=== PATIENT | female | born 1985 | race American Indian/Alaskan Native ===

== ENCOUNTER 2016-10-20 08:56 | Day surgery (SDC) | payer MEDICAID ==
[~2016-10-20 08:56] MED LIST: Lidocaine 2% 5 ML SDV ONE; Midazolam 1 MG/ML 2 ML SDV ONE; Propofol 200 MG/20 ML SDV ONE; fentaNYL 100 MCG/2 ML SDV ONE
[2016-10-20] MEDS ORDERED: Sodium Chloride 0.9% 2.5 ML Syringe FLUSH PRN (09:14)
[2016-10-20] MEDS ORDERED: fentaNYL 100 MCG/2 ML SDV IVPUSH PRN (09:14)
[2016-10-20] MEDS ORDERED: Sodium Chloride 0.9% 10 ML Syringe FLUSH PRN (09:14)
[2016-10-20] MEDS ORDERED: Lactated Ringers 1,000 ML IV SCH (09:15)
--- NOTE | 2016-10-20 09:32 | PCM.PREANE ---
Preanesthetic Assessment - Anesthesia/Transfusion/Family Hx Anesthesia History: Prior Anesthesia Without Reaction Family History of Anesthesia Reaction: No Transfusion History: No Prior Transfusion(s) Intubation History: Unknown - Review of Systems General: No Symptoms Pulmonary: No Symptoms Cardiovascular: No Symptoms Gastrointestinal: No symptoms Neurological: No Symptoms Other: Reports: None - Physical Assessment O2 Sat by Pulse Oximetry: 99 Respiratory Rate: 16 Vital Signs: Last Vital Signs Temp 36.3 C 10/20/16 09:11 Pulse 80 10/20/16 09:11 Resp 16 10/20/16 09:11 BP 134/67 10/20/16 09:11 Pulse Ox 99 10/20/16 09:11 Height: 1.64 m Weight: 92.986 kg ASA Class: 2 Mental Status: Alert & Oriented x3 Airway Class: Mallampati = 2 Dentition: Reports: Normal Dentition (bonded front upper incisors) Thyro-Mental Finger Breadths: 3 Mouth Opening Finger Breadths: 3 ROM/Head Extension: Full Lungs: Clear to auscultation, Normal respiratory effort Cardiovascular: Regular Rate, Regular Rhythm - Allergies Allergies/Adverse Reactions: Allergies Allergy/AdvReac Type Severity Reaction Status Date / Time hydrocodone Allergy Nausea and Verified 10/16/16 10:22 Vomiting - Blood Blood Available: No - Anesthesia Plan Pre-Op Medication Ordered: None - Acknowledgements Anesthesia Type Planned: MAC Pt an Appropriate Candidate for the Planned Anesthesia: Yes Alternatives and Risks of Anesthesia Discussed w Pt/Guardian: Yes Pt/Guardian Understands and Agrees with Anesthesia Plan: Yes PreAnesthesia Questionnaire - Past Health History Medical/Surgical History: Denies Medical/Surgical History 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: Endocrine/Metabolic History: Reports: Obesity/BMI 30+ Dermatologic History: Reports: Psoriasis - Past Surgical History Head Surgeries/Procedures: Reports: None Female Surgical History: Reports: Cervical Conization, D&C - SUBSTANCE USE Smoking Status *Q: Current Every Day Smoker (< 1/2 ppd) Tobacco Use Within Last Twelve Months: Cigarettes Days Per Week of Alcohol Use: 0 Recreational Drug Use History: No - HOME MEDS Home Medications: Home Meds Desogestrel-Ethinyl Estradiol [Reclipsen 28 Day Tablet] 1 tab PO ASDIRECTED 06/03 [History] - CURRENT (IN HOUSE) MEDS Current Meds: Current Medications Fentanyl (Sublimaze) 50 mcg IVPUSH Q5M PRN PRN Reason: Pain (severe 7-10) Stop: 10/21/16 09:14 Lactated Ringer's (Ringers, Lactated) 1,000 mls @ 125 mls/hr IV ASDIRECTED FRANCISCO Sodium Chloride (Saline Flush) 10 ml FLUSH ASDIRECTED PRN PRN Reason: Keep Vein Open Sodium Chloride (Saline Flush) 2.5 ml FLUSH ASDIRECTED PRN PRN Reason: Keep Vein Open
[2016-10-20] MEDS ORDERED: fentaNYL 100 MCG/2 ML SDV ONE (10:45)
[2016-10-20] MEDS ORDERED: Propofol 200 MG/20 ML SDV ONE (10:47)
--- NOTE | 2016-10-20 11:22 | PCM.OPNOTE ---
- General Post-Op/Procedure Note Date of Surgery/Procedure: 10/20/16 Operative Procedure(s): LEEP Findings: transformation zone was clearly visible, but was within the endocervical canal, it was friable, there were no discrete areas of acetowhite epithelium identified. At the end of the procedure an abrasion on the lower right vagina was noted, and was hemostatic Pre Op Diagnosis: ASC-H pap, discordant biopsies Post-Op Diagnosis: Same Anesthesia Technique: General LMA Other Anesthesia Type: cervical block Primary Surgeon: Rufina Mosley Anesthesia Provider: Gwen Perez Universal Grinder Operator: Pal Doe Pathology: ectocervix, endocervix, endocervical curettings. Fluid Replacement, Intraop: 1,000 EBL in mLs: 10 Complications: None Known Condition: Good
[2016-10-20 14:07] VITALS: BP 121/66
--- NOTE | 2016-10-21 10:47 | OR ---
SURGEON: Rufina Mosley M.D. DATE OF PROCEDURE: 10/20/2016 PREOPERATIVE DIAGNOSIS: Atypical squamous cells, cannot rule out high-grade Pap smear with discordant biopsies. POSTOPERATIVE DIAGNOSIS: Atypical squamous cells, cannot rule out high-grade Pap smear with discordant biopsies. PROCEDURE: Loop electrode excisional procedure. ANESTHESIA: Monitored anesthetic care with cervical block. FLUIDS: 1000 mL crystalloid. ESTIMATED BLOOD LOSS: Minimal. FINDINGS: Upon colposcopy the transformation zone was visible, but was within the endocervical canal consistent with a prior LEEP. The transformation zone was very friable. There was no discrete areas of acetowhite epithelium that were identified. COMPLICATIONS: None known. DISPOSITION: Stable to recovery. BRIEF HISTORY: This is a 31-year-old female. She is a G3, P2-0-1-2. She has a recent history of atypical squamous cells, cannot rule out high-grade Pap with high-risk HPV positive. Biopsies in the office showed only mild dysplasia. This did not explain the high grade potential cells that were seen by the pathologist. Therefore, I did recommend proceeding with further evaluation with a LEEP procedure. She reports a normal Pap in 2014. Prior LEEP in 2005 in [place]. Surgical risk of loop electrode excisional procedure were discussed including bleeding, infection, injury to surrounding organs, cervical incompetence with future pregnancies; risk of recurrence of approximately 15%. Understanding all of these risks, she does desire to proceed. DESCRIPTION OF PROCEDURE: With the patient in the dorsal lithotomy position, under adequate IV sedation, the speculum was placed in the vagina. The bladder had been drained with a Red Hernandez catheter. The cervix was grasped with a single tooth tenaculum as with the apex of the vagina was extremely narrow and I had to bring the cervix down into view into the speculum. The cervix was treated with acetowhite epithelium. Colposcopy was performed with findings as noted above. The Lugol solution was then placed. The nonstaining area was limited to the transformation zone within the endocervical canal. A total of 10 mL of 1% lidocaine were injected at the 12, 5, and 7 o'clock positions of the cervix. With pure cut at a setting of 40, the ectocervix was excised. A small loop was then used to excise the endocervix. The first ectocervical specimen was opened at 12 o'clock. The second endocervical specimen was labeled with a suture at 12 o'clock. Sharp curettage of the endocervix was then performed with the cell being collected with the Cytobrush. As the speculum was being removed from the vagina, I noted a small abrasion on the right lower aspect of the vagina, which will be reported to the patient postoperatively. This was hemostatic did not require any suturing. The Monsel's solution had been applied to the cervix after completion of the procedure. Final sponge, needle, instrument counts were reported as correct. There were no known complications. The patient was transferred to recovery in good condition. AMBER SOLITARIO /[id number]
== END 2016-10-20 12:36 | disposition home or self-care (01) ==
LOC: MW.SDS 08:56
PROVIDERS: ATTEND Obstetrics & Gynecology
DX: N87.0 Mild cervical dysplasia (principal); N72 Inflammatory disease of cervix uteri; L40.9 Psoriasis, unspecified; E66.9 Obesity, unspecified; F17.210 Nicotine dependence, cigarettes, uncomplicated; Z79.3 Long term (current) use of hormonal contraceptives; Z79.899 Other long term (current) drug therapy; Z68.30 Body mass index [BMI] 30.0-30.9, adult; Z98.890 Other specified postprocedural states; Z88.6 Allergy status to analgesic agent
CPT/HCPCS: 36415; 57460; 58110; 84703; 88305; 88307; J2250; J3010; 00940; J2704

== ENCOUNTER 2018-12-23 21:40 | Emergency (ER) | payer MEDICAID ==
[2018-12-23 22:20] VITALS: BP 129/80; PULSE 89
--- NOTE | 2018-12-23 22:23 | EDM.PDOC ---
ED HPI GENERAL MEDICAL PROBLEM - General Chief Complaint: ENT Problem Stated Complaint: SORE THROAT Time Seen by Provider: 12/23/18 22:15 - History of Present Illness INITIAL COMMENTS - FREE TEXT/NARRATIVE: HISTORY AND PHYSICAL: History of present illness: The patient is a 33-year-old female who presents with 2 days of sore throat and she is concerned about infection because her niece has tonsillitis and she babysat and exchanged popsicles just a few days ago. She's had no fevers or chills no cough chest pain or shortness of breath no nausea or vomiting. She says it is more painful with swallowing and now the pain seems to be going up the right side of her neck to her ear.. The patient did not have her tonsils removed Review of systems: As per history of present illness and below otherwise all systems reviewed and negative. Past medical history: As per history of present illness and as reviewed below otherwise noncontributory. Surgical history: As per history of present illness and as reviewed below otherwise noncontributory. Social history: No reported history of drug or alcohol abuse. Family history: As per history of present illness and as reviewed below otherwise noncontributory. Physical exam: General: Well-developed well-nourished female who is nontoxic and vital signs are noted by me. There is no evidence of any facial swelling appreciated HEENT: Atraumatic, normocephalic, pupils reactive, negative for conjunctival pallor or scleral icterus, mucous membranes moist, throat clear, neck supple, nontender, trachea midline. Is no cervical adenopathy or nuchal rigidity and there is no thyromegaly. The throat has oral pharyngeal erythema right greater than left but there are no exudates and uvula is midline Lungs: Clear to auscultation, breath sounds equal bilaterally, chest nontender. Heart: S1S2, regular rate and rhythm no overt murmurs Abdomen: Soft, nondistended, nontender. NABS Pelvis: Deferred Genitourinary: Deferred. Rectal: Deferred. Extremities: Atraumatic, negative for cords or calf pain. Neurovascular unremarkable. Neuro: Awake, alert, oriented. Cranial nerves II through XII unremarkable. Cerebellum unremarkable. Motor and sensory unremarkable throughout. Exam nonfocal. Diagnostics: Patient was offered a strep test and declines Therapeutics: [] The patient does not want [employer] Meds and wants a prescription Impression: Pharyngitis with history of exposure to tonsillitis Definitive disposition and diagnosis as appropriate pending reevaluation and review of above. throat Pain Score (Numeric/FACES): 6 - Related Data Allergies Allergy/AdvReac Type Severity Reaction Status Date / Time codeine Allergy Vomiting Verified 05/07/18 21:15 hydrocodone Allergy Nausea and Verified 10/16/16 10:22 Vomiting Home Meds: Home Meds Fluocinonide/Emollient [Lidex-E 0.05% Crm] 1 applic TOP 05/07/18 [History] PNV #116/Iron Fumarate/FA/DHA [Expecta Combo Pack] 1 tab DAILY [History] Past Medical History - Past Health History Medical/Surgical History: Denies Medical/Surgical History HEENT History: Reports: None Cardiovascular History: Reports: None Respiratory History: Reports: Other (See Below) (Smoker) Gastrointestinal History: Reports: GERD Genitourinary History: Reports: None 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: Musculoskeletal History: Reports: None Neurological History: Reports: None Psychiatric History: Reports: None Endocrine/Metabolic History: Reports: Obesity/BMI 30+ Hematologic History: Reports: None Immunologic History: Reports: None Oncologic (Cancer) History: Reports: None Dermatologic History: Reports: Psoriasis - Infectious Disease History Infectious Disease History: Reports: None - Past Surgical History Head Surgeries/Procedures: Reports: None Cardiovascular Surgical History: Reports: None GI Surgical History: Reports: None Female Surgical History: Reports: Cervical Conization, D&C Musculoskeletal Surgical History: Reports: None Dermatological Surgical History: Reports: None Social & Family History - Family History HEENT: Reports: None Cardiac: Reports: None Respiratory: Reports: None GI: Reports: None : Reports: None OBGYN: Reports: None Musculoskeletal: Reports: None Neurological: Reports: None Psychiatric: Reports: None Endocrine/Metabolic: Reports: None Hematologic: Reports: None Immunologic: Reports: None Dermatologic: Reports: None Oncologic: Reports: None - Caffeine Use Caffeine Use: Reports: Coffee, Soda ED ROS GENERAL - Review of Systems Review Of Systems: ROS reveals no pertinent complaints other than HPI. ED EXAM, GENERAL - Physical Exam Exam: See Below (See dictation) Course - Vital Signs Last Recorded V/S: Last Vital Signs Temp 36.1 C 12/23/18 22:15 Pulse 89 12/23/18 22:15 Resp 18 12/23/18 22:15 BP 129/80 12/23/18 22:15 Pulse Ox 98 12/23/18 22:15 Departure - Departure Time of Disposition: 22:22 Disposition: Home, Self-Care 01 Condition: Good Clinical Impression: Pharyngitis Qualifiers: Pharyngitis/tonsillitis etiology: unspecified etiology Qualified Code(s): J02.9 - Acute pharyngitis, unspecified - Discharge Information Referrals: Willem Roblero MD [Primary Care Provider] - Additional Instructions: The following information is given to patients seen in the emergency department who are being discharged to home. This information is to outline your options for follow-up care. We provide all patients seen in our emergency department with a follow-up referral. The need for follow-up, as well as the timing and circumstances, are variable depending upon the specifics of your emergency department visit. If you don't have a primary care physician on staff, we will provide you with a referral. We always advise you to contact your personal physician following an emergency department visit to inform them of the circumstance of the visit and for follow-up with them and/or the need for any referrals to a consulting specialist. The emergency department will also refer you to a specialist when appropriate. This referral assures that you have the opportunity for followup care with a specialist. All of these measure are taken in an effort to provide you with optimal care, which includes your followup. Under all circumstances we always encourage you to contact your private physician who remains a resource for coordinating your care. When calling for followup care, please make the office aware that this follow-up is from your recent emergency room visit. If for any reason you are refused follow-up, please contact the [facility] emergency department at and ask to speak to the emergency department charge nurse. [facility] Primary care- Internal Medicine and Family [address] [address] Push hydration including sips of clear fluids popsicles ice chips and use any [id number] medications for pain management as you choose. Take antibiotics as prescribed until finished. Call and schedule a follow-up appointment with your provider or one of hours for reevaluation and further care. Return to ER as needed and as discussed
== END 2018-12-23 22:35 | disposition home or self-care (01) ==
LOC: MW.ED 21:40
DX: J02.9 Acute pharyngitis, unspecified (principal); E66.9 Obesity, unspecified; Z68.37 Body mass index [BMI] 37.0-37.9, adult; Z88.5 Allergy status to narcotic agent; Z88.6 Allergy status to analgesic agent; Z79.899 Other long term (current) drug therapy
CPT/HCPCS: 99282; 99283